=== PATIENT | female | born 1995 | race Caucasian/White ===

== ENCOUNTER → 2025-04-28 | Outpatient (CLI) | payer OTHER ==
[2025-04-28 14:00] LABS: BASO # 0.1 10^3/uL (0.0-0.2); BASO % 0.6 % (0.0-1.0); EOS # 0.1 10^3/uL (0.0-0.5); EOS % 0.6 % (0.0-3.0); LYMPH # 2.3 10^3/uL (1.5-5.0); LYMPH % 18.4 % (24.0-44.0); MONO # 0.6 10^3/uL (0.0-0.8); MONO % 5.1 % (2.0-8.0); NEUTROPHILS # 9.3 10^3/uL (1.5-8.5); NEUTROPHILS % 74.7 % (36.0-66.0); PLATELET COUNT, AUTOMATED 326 10^3/uL (150-450)
[2025-04-28 14:07] LABS: ERYTHROCYTE SEDIMENTATION RATE 29 mm/hr (0-20)
[2025-04-28 14:28] LABS: ESTIMATED AVERAGE GLUCOSE 111.0 MG/DL (60-110)
[2025-04-28 14:30] LABS: C REACTIVE PROTEIN QUANTITATIV 0.80 MG/DL (<1.0)
[2025-04-28 14:31] LABS: ALT/SGPT 58 U/L (7.0-40); AST/SGOT 30 U/L (<34); CALCIUM LEVEL 9.5 MG/DL (8.5-10.1); CARBON DIOXIDE LEVEL 26 MMOL/L (20-31); CHLORIDE LEVEL 106 MMOL/L (98-107); CHOLESTEROL LEVEL 141 MG/DL (<200); CHOLESTEROL RISK RATIO 3.30 (<5); CREATININE FOR GFR 0.66 MG/DL (0.55-1.30); GLOMERULAR FILTRATION RATE > 90.0 (>60); IRON (FE) 64 UG/DL (50-170); LDL CHOLESTEROL 82.2 MG/DL (<100); NON-HDL-C 98.4 MG/DL; PERCENT SATURATION 19.5 % (13.2-45.0); POTASSIUM SERUM 4.7 MMOL/L (3.5-5.1); SODIUM LEVEL 142 MMOL/L (136-145); TRIGLYCERIDES LEVEL 81 MG/DL (<150)
[2025-04-28 14:34] LABS: FREE T4 1.04 NG/DL (0.89-1.76)
[2025-04-28 14:35] LABS: TOTAL 25(OH) VITAMIN D 36.5 NG/ML (20.0-100.0); VITAMIN B12 LEVEL 385 PG/ML (211-911)
== END ==
LOC: M PLALAB 11:12
PROVIDERS: ATTEND Student in an Organized Health Care Education/Training Program
DX: Z00.00 Encounter for general adult medical examination without abnormal findings (principal); M54.41 Lumbago with sciatica, right side; M47.814 Spondylosis without myelopathy or radiculopathy, thoracic region; M25.441 Effusion, right hand; R53.83 Other fatigue; R19.7 Diarrhea, unspecified